=== PATIENT | male | born 1960 | race Caucasian/White ===

== ENCOUNTER 2018-10-11 11:25 | Emergency (ER) | payer OTHER ==
[~2018-10-11] VITALS: Ht 170.2 cm; Wt 79.4 kg
[~2018-10-11 11:25] MED LIST: ASP325T PO; CARV12.53 PO; GLUC100016 PO; MULTIVITAMEN PO; OMEG1CAP51 PO; RAMI10CA PO
--- OUTSIDE RECORDS SUMMARY | 2018-10-11 11:30 | XMS REPORT | Continuity of Care Document ---
Author Author [facility] Organization [facility] Address Unknown Phone Unavailable Allergies Active Description Code Type Severity Reaction Onset Reported/Identified Relationship to Patient Clinical Status Yes PENICILLIN PENICILLIN Mild RASH ON BODY 04/17/2012 Medications There is no data. 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 04/17/2012 Ot V76.51 SCREEN MAL NEOP-COLON 04/08/2016 Ot 428.0 CONGESTIVE HEART FAILURE NOS 04/08/2016 Ot V72.84 EXAM PRE- OPERATIVE NOS 04/08/2016 Ot 397.0 TRICUSPID VALVE DISEASE 04/08/2016 Ot 401.9 HYPERTENSION NOS 04/08/2016 Ot 424.0 MITRAL VALVE DISORDER 04/08/2016 Ot 428.0 CONGESTIVE HEART FAILURE NOS 04/08/2016 Ot 429.3 CARDIOMEGALY 04/08/2016 Ot 716.91 ARTHROPATHY NOS-SHLDER 04/09/2016 MORENA PIRES APRN Ot M79.661 PAIN IN RIGHT LOWER LEG 04/09/2016 MORENA PIRES APRN Ot R22.41 LOCALIZED SWELLING, MASS AND LUMP, RIGHT 04/09/2016 MORENA PIRES APRN Ot S80.11XA CONTUSION OF RIGHT LOWER LEG, INITIAL EN 04/09/2016 MORENA PIRES APRN Ot W11.XXXA FALL ON AND FROM LADDER, INITIAL ENCOUNT 04/09/2016 MORENA PIRES APRN Ot Y99.8 OTHER EXTERNAL CAUSE STATUS 04/25/2016 MORENA PIRES APRN Ot M79.661 PAIN IN RIGHT LOWER LEG 04/25/2016 MORENA PIRES APRN Ot R22.41 LOCALIZED SWELLING, MASS AND LUMP, RIGHT 04/25/2016 PIRES, MORENA L DUBBING MACHINE OPERATOR Ot S80.11XA CONTUSION OF RIGHT LOWER LEG, INITIAL EN 04/25/2016 MORENA PIRES DUBBING MACHINE OPERATOR Ot W11.XXXA FALL ON AND FROM LADDER, INITIAL ENCOUNT 04/25/2016 MORENA PIRES DUBBING MACHINE OPERATOR Ot Y99.8 OTHER EXTERNAL CAUSE STATUS 07/24/2016 OLEKSANDR ANDREA DO Ot R51 HEADACHE 07/24/2016 OLEKSANDR ANDREA DO Ot W22.8XXA STRIKING AGAINST OR STRUCK BY OTHER OBJE 07/24/2016 OLEKSANDR ANDREA DO Ot Y99.8 OTHER EXTERNAL CAUSE STATUS Procedures There is no data. Results There is no data. Encounters ACCT No. Visit Date/Time Discharge Status Pt. Type Provider Facility Loc./Unit Complaint [id number] 06/27/2016 09:00:00 06/27/2016 23:59:59 CLS Outpatient OLEKSANDR ANDREA DO [facility] RAD DECREASED ROM AND PAIN [id number] 04/08/2016 07:47:00 04/08/2016 23:59:59 CLS Outpatient MORENA PIRES DUBBING MACHINE OPERATOR [facility] RAD [id number] 04/01/2016 11:15:00 04/01/2016 23:59:59 CLS Outpatient NEY SPENCER [facility] QUICK [id number] 06/15/2014 08:11:00 06/15/2014 23:59:59 CLS Outpatient [id number] 11/20/2012 12:38:00 Document Registration [id number] 07/15/2012 09:00:00 Document Registration [id number] 04/17/2012 07:36:00 Document Registration [id number] 04/16/2012 06:59:00 Document Registration [id number] 2011 08:21:00 Document Registration
--- NOTE | 2018-10-11 12:32 | Diagnostic Imaging Report ---
INDICATION: Difficulty breathing for 2 days. Cough and wheezing EXAMINATION: PA and lateral views of the chest. FINDINGS: The heart size and vascularity are normal. Lungs are clear. There is no effusion. There is no acute bony abnormality. IMPRESSION: No acute abnormality is seen. There is no significant change from 06/12/2008. Dictated by: Dictated on workstation # [id number]
[2018-10-11] MEDS ORDERED: MAGN400T39 PO (12:46)
[2018-10-11] MEDS ORDERED: RED600CA2 PO (12:46)
[2018-10-11 13:10] LABS: BASOPHILS % (AUTO) 0 % (0-10); EOSINOPHILS # (AUTO) 0.1 10^3/uL (0.0-0.3); EOSINOPHILS % (AUTO) 2 % (0-10); HEMATOCRIT 45 % (40-54); HEMOGLOBIN 15.3 G/DL (13.3-17.7); LYMPHOCYTES # (AUTO) 1.7 X 10^3 (1.0-4.0); LYMPHOCYTES % (AUTO) 23 % (12-44); MEAN CORPUSCULAR HEMOGLOBIN 32 PG (25-34); MEAN CORPUSCULAR HGB CONC 34 G/DL (32-36); MEAN CORPUSCULAR VOLUME 94 FL (80-99); MEAN PLATELET VOLUME 10.1 FL (7.4-10.4); MONOCYTES # (AUTO) 0.8 X 10^3 (0.0-1.0); MONOCYTES % (AUTO) 11 % (0-12); NEUTROPHILS # (AUTO) 4.9 X 10^3 (1.8-7.8); NEUTROPHILS % (AUTO) 64 % (42-75); PLATELET COUNT 273 10^3/uL (130-400); RED BLOOD COUNT 4.83 10^6/uL (4.35-5.85); RED CELL DISTRIBUTION WIDTH 13.1 % (10.0-14.5); WHITE BLOOD COUNT 7.6 10^3/uL (4.3-11.0)
[2018-10-11] MEDS ORDERED: RT-ALBUTEROL/IPRATROPIUM 3 ML (DUONEB) VIAL INH ONE (13:15)
--- NOTE | 2018-10-11 13:21 | ED Respiratory ---
General Chief Complaint: Respiratory Problems Stated Complaint: SOB, POSS FLUID IN LUNGS Nursing Triage Note: PATIENT AMBULATORY TO ER WITH COMPLAINT OF SHORTNESS OF BREATH THAT HAS BEEN PRESENT SINCE FRIDAY. PATIENT STATES HE BELIEVES HE OVERWORKED HIMSELF OVER THE LAST SEVERAL DAYS. HE STATES HE GETS WORSENING SHORTNESS OF BREATH WITH SLEEPING IN BED AND WITH EXERTION. HE STATES HE ALSO GETS CHEST TIGHTNESS WITH EXERTION. 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 Source: patient, family Exam Limitations: no limitations History of Present Illness Date Seen by Provider: Oct 11, 2018 Time Seen by Provider: 12:47 Initial Comments Here with report of shortness of breath and tightness in his chest is been going on for 2 days. Started after moving several heavy items into a moving truck. Ultimately he had to move 50 items that were about 150 pounds with another catherine. It was cold outside when he did that and he could feel some tightness in his chest at that time. He had arrest multiple times during that event. Afterwards he noted that he remained somewhat short of breath especially at night and especially when laying down. Better today. Did report chest pain but states it's actually tightness. Does have history of bad heart valve that they are watching. Used to smoke but quit 6 years ago. reports that he had bruising agreement wheezing last night. Timing/Duration: changing over time, other (2-3 days) Severity: moderate Prior Episodes/Possible Cause: occasional episodes Modifying Factors: Worse With Activity, Worse With Lying Down; Improves With Rest Associated Symptoms: cough; No fever/chills, No nasal congestion, No nasal drainage; shortness of breath; No sinus infection; wheezing Allergies and Home Medications Allergies Uncoded Allergies: PENICILLIN (Allergy, Mild, RASH ON BODY, 04/17/12) Home Medications Carvedilol 12.5 Mg Tablet, 1 EACH PO BID, (Reported) Glucosamine Sulfate 2KCL 1,000 Mg Tablet, 1,000 MG PO DAILY, (Reported) Magnesium Oxide 400 Mg Tablet, 400 MG PO DAILY, (Reported) Ramipril 10 Mg Capsule, 10 MG PO DAILY, (Reported) Red Yeast Rice 600 Mg Capsule, 600 MG PO BID, (Reported) Patient Home Medication List Home Medication List Reviewed: Yes Review of Systems Review of Systems Constitutional: see HPI; No chills, No fever EENTM: no symptoms reported Respiratory: see HPI Cardiovascular: see HPI; No chest pain; other (valvular heart disease) Gastrointestinal: No nausea, No vomiting Genitourinary: no symptoms reported Musculoskeletal: no symptoms reported All Other Systems Reviewed Negative Unless Noted: Yes Past Okfklho-Ugxcat-Ophwzi Hx Past Med/Social Hx: Reviewed Nursing Past Med/Soc Hx Patient Social History Alcohol Use: Denies Use Recreational Drug Use: No Smoking Status: Former Smoker Former Smoker, Quit: Sep 23, 2012 2nd Hand Smoke Exposure: Yes Recent Foreign Travel: No Contact w/Someone Who Travel: No Recent Infectious Disease Expo: No Recent Hopitalizations: No Physical Abuse: No Sexual Abuse: No Mistreated: No Fear: No Seasonal Allergies Seasonal Allergies: No Past Medical History Surgeries: Yes (LYMPH NODE FROM BOWEL, RIGHT SOULDER, KIDNEY STONES REMOVED) Abdominal, Appendectomy, Renal Respiratory: No Cardiac: Yes (chf,cardiomyopathy, FAULTY HEART VALVE) Valvular Heart Disease Neurological: No Genitourinary: Yes Kidney Stones Gastrointestinal: No Musculoskeletal: No Endocrine: No HEENT: No Cancer: No Psychosocial: No Integumentary: No Blood Disorders: No Family Medical History Reviewed Nursing Family Hx Physical Exam Vital Signs - First Documented 10/11/18 10/11/18 11:52 13:20 Temp 98.1 Pulse 92 Resp 14 B/P (MAP) 146/89 (108) Pulse Ox 94 O2 Delivery Room Air Capillary Refill : Less Than 3 Seconds Height: 5'7.00" Weight: 175lbs. oz. 79.756979yx; BMI Method:Stated General Appearance: WD/WN, no apparent distress HEENT: PERRL/EOMI, pharynx normal Neck: full range of motion, supple Respiratory: chest non-tender, no accessory muscle use, wheezing (a few trace wheezes lower) Cardiovascular: regular rate, rhythm, systolic murmur (greatest at the left sternal border) Gastrointestinal: non tender, soft Extremities: non-tender, normal inspection Neurologic/Psychiatric: alert, oriented x 3 Skin: normal color, warm/dry Progress/Results/Core Measures Suspected Sepsis Recent Fever Within 48 Hours: No Infection Criteria Present: None New/Unexplained Altered Menta: No Sepsis Screen: No Definite Risk SIRS Temperature:98.1 Pulse: 92 Respiratory Rate: 14 Laboratory Tests 10/11/18 11:44: White Blood Count 7.6 Blood Pressure 146 /89 Mean: 108 Laboratory Tests 10/11/18 11:44: Creatinine 0.85, Platelet Count 273, Total Bilirubin 0.8 Results/Orders Lab Results Laboratory Tests Test 10/11/18 11:44 Range/Units White Blood Count 7.6 4.3-11.0 10^3/uL Red Blood Count 4.83 4.35-5.85 10^6/uL Hemoglobin 15.3 13.3-17.7 G/DL Hematocrit 45 40-54 % Mean Corpuscular Volume 94 80-99 FL Mean Corpuscular Hemoglobin 32 25-34 PG Mean Corpuscular Hemoglobin Concent 34 32-36 G/DL Red Cell Distribution Width 13.1 10.0-14.5 % Platelet Count 273 130-400 10^3/uL Mean Platelet Volume 10.1 7.4-10.4 FL Neutrophils (%) (Auto) 64 42-75 % Lymphocytes (%) (Auto) 23 12-44 % Monocytes (%) (Auto) 11 0-12 % Eosinophils (%) (Auto) 2 0-10 % Basophils (%) (Auto) 0 0-10 % Neutrophils # (Auto) 4.9 1.8-7.8 X 10^3 Lymphocytes # (Auto) 1.7 1.0-4.0 X 10^3 Monocytes # (Auto) 0.8 0.0-1.0 X 10^3 Eosinophils # (Auto) 0.1 0.0-0.3 10^3/uL Basophils # (Auto) 0.0 0.0-0.1 10^3/uL Sodium Level 138 135-145 MMOL/L Potassium Level 4.3 3.6-5.0 MMOL/L Chloride Level 109 H 98-107 MMOL/L Carbon Dioxide Level 20 L 21-32 MMOL/L Anion Gap 9 5-14 MMOL/L Blood Urea Nitrogen 23 H 7-18 MG/DL Creatinine 0.85 0.60-1.30 MG/DL Estimat Glomerular Filtration Rate > 60 BUN/Creatinine Ratio 27 Glucose Level 104 70-105 MG/DL Calcium Level 9.0 8.5-10.1 MG/DL Corrected Calcium 9.1 8.5-10.1 MG/DL Total Bilirubin 0.8 0.1-1.0 MG/DL Aspartate Amino Transf (AST/SGOT) 20 5-34 U/L Alanine Aminotransferase (ALT/SGPT) 32 0-55 U/L Alkaline Phosphatase 78 40-136 U/L Troponin I < 0.30 <0.30 NG/ML B-Type Natriuretic Peptide 116.3 H <100.0 PG/ML Total Protein 6.5 6.4-8.2 GM/DL Albumin 3.9 3.2-4.5 GM/DL My Orders Orders - ALEKSANDER SPENCER MD Chest Pa/Lat (2 View) (10/11/18 12:14) BNP (10/11/18 13:05) Cbc With Automated Diff (10/11/18 13:05) Comprehensive Metabolic Panel (10/11/18 13:05) Troponin I (10/11/18 13:05) Ekg Tracing (10/11/18 13:05) Albuterol/Ipra Inhalation Soln (Duoneb I (10/11/18 13:15) Svn Small Volume Nebulizer (10/11/18 13:06) Rx-Albuterol Inhaler (Rx-Proair) (10/11/18 13:45) Medications Given in ED Current Medications Medications Dose Ordered Sig/Juan Carlos Route Start Time Stop Time Status Last Admin Dose Admin Albuterol/ Ipratropium 3 ml ONCE ONCE INH 10/11/18 13:15 10/11/18 13:16 DC 10/11/18 13:20 3 ML Vital Signs/I&O 10/11/18 10/11/18 11:52 13:20 Temp 98.1 Pulse 92 Resp 14 B/P (MAP) 146/89 (108) Pulse Ox 94 O2 Delivery Room Air Room Air Capillary Refill : Less Than 3 Seconds Blood Pressure Mean: 108 Progress Note : Progress Note Seen and evaluated. IV, labs, EKG and chest x-ray ordered. Duo neb ordered. Monitor patient. This did markedly improve his breathing. 1346: Overall much better. Prednisone 40 mg by mouth and we will give patient an albuterol inhaler to go. He was instructed to follow-up with his primary care physician as well as his inspector machined parts. He does have a history of mitral prolapse and mitral valve problems. This may be contributing some although I do believe this is more related to lungs. Discharged home with return precautions. Patient verbalize understanding instructions and agreement with plan. ECG Initial ECG Impression Date: Oct 11, 2018 Initial ECG Impression Time: 11:33 Initial ECG Rate: 90 Initial ECG Rhythm: Normal Sinus Comment Sinus rhythm with left bundle branch block. No evidence of ST elevation SD. Similar to 12 June 2008. Interpreted by me. Diagnostic Imaging Diagonstic Imaging: Xray Plain Films/CT/US/NM/MRI: chest Comments NAME: SOBEIDA ARANA [facility] REC#: [id number] PT STATUS: REG ER : 1960 PHYSICIAN: ALEKSANDER SPENCER MD ADMIT DATE: 10/11/18/ER Signed Date of Exam: 10/11/18 CHEST PA/LAT (2 VIEW) INDICATION: Difficulty breathing for 2 days. Cough and wheezing EXAMINATION: PA and lateral views of the chest. FINDINGS: The heart size and vascularity are normal. Lungs are clear. There is no effusion. There is no acute bony abnormality. IMPRESSION: No acute abnormality is seen. There is no significant change from 06/12/2008. Dictated by: Dictated on workstation # [id number] Dict: 10/11/18 1227 Trans: 10/11/18 1243 Interpreted by: CEM VILLAVICENCIO MD Electronically signed by: CEM VILLAVICENCIO MD 10/11/18 1243 Departure Impression Primary Impression: COPD exacerbation Disposition: 01 HOME, SELF-CARE Condition: Improved Departure-Patient Inst. Decision time for Depature: 13:48 Referrals: SAMANTHA LI DO (PCP/Family) Primary Care Physician Patient Instructions: Acute Bronchitis, Adult (DC) Add. Discharge Instructions: All discharge instructions reviewed with patient and/or family. Voiced understanding. Take medications as directed. Follow-up with your doctor this week or early next week for recheck and further evaluation. You may use the inhaler 2 puffs every 6 hours as needed for wheezing or shortness of breath. Return for worse pain, fever, vomiting, weakness, breathing problems or other concerns as needed. You should follow-up with your inspector machined parts to discuss the symptoms as well. Scripts Albuterol Sulfate (VENTOLIN HFA) 1 Puff Puff 2 PUFF IH Q4H PRN for WHEEZING, #1 INHALER 0 Refills 1 PUFF = 90 MCG Prov: ALEKSANDER SPENCER MD 10/11/18 Prednisone (Prednisone) 20 Mg Tab 40 MG PO DAILY, #6 TAB 0 Refills Prov: ALEKSANDER SPENCER MD 10/11/18 Copy Copies To 1: SAMANTHA LI TIMOTHY D MD Oct 11, 2018 13:21
[2018-10-11 13:23] LABS: ALANINE AMINOTRANSFERASE 32 U/L (0-55); ALBUMIN 3.9 GM/DL (3.2-4.5); ALKALINE PHOSPHATASE 78 U/L (40-136); BILIRUBIN,TOTAL 0.8 MG/DL (0.1-1.0); BUN/CREATININE RATIO 27; CARBON DIOXIDE 20 MMOL/L (21-32); CHLORIDE 109 MMOL/L (98-107); CREATININE SERUM 0.85 MG/DL (0.60-1.30); GFR ESTIMATED > 60; GLUCOSE 104 MG/DL (70-105); POTASSIUM 4.3 MMOL/L (3.6-5.0); SODIUM 138 MMOL/L (135-145); TOTAL PROTEIN 6.5 GM/DL (6.4-8.2)
[2018-10-11] MEDS ORDERED: predniSONE 20 MG TAB PO ONE (13:45)
[2018-10-11] MEDS ORDERED: RX-ALBUTEROL INHALER (PROAIR) 8 GM IH PRN (13:45)
[2018-10-11] MEDS ORDERED: RT-ALBUINH IH (13:50)
[2018-10-11] MEDS ORDERED: PRD20T PO (13:50)
[2018-10-11 14:13] VITALS: BP 126/86
== END 2018-10-11 14:16 | disposition home or self-care (01) ==
LOC: EDUNIT# 11:25 → ER 11:26
DX: J44.1 Chronic obstructive pulmonary disease with (acute) exacerbation (principal); I50.9 Heart failure, unspecified; I42.9 Cardiomyopathy, unspecified; Z87.891 Personal history of nicotine dependence; Z88.0 Allergy status to penicillin; Z94.9 Transplanted organ and tissue status, unspecified; Z87.442 Personal history of urinary calculi
CPT/HCPCS: 36415; 71046; 80053; 83880; 84484; 85025; 94640

== ENCOUNTER 2019-01-18 07:21 | Outpatient (RCR) | payer OTHER ==
[~2019-01-18 07:21] MED LIST changes: +MAGN400T39 PO; +PRD20T PO; +RED600CA2 PO; +RT-ALBUINH IH
== END 2019-04-18 | disposition home or self-care (01) ==
LOC: CARD 07:21
PROVIDERS: ATTEND Internal Medicine
DX: I48.0 Paroxysmal atrial fibrillation (principal)
CPT/HCPCS: 93225; 93226

== ENCOUNTER 2019-01-22 13:51 | Outpatient (RCR) | payer OTHER | END 2019-04-22 | disposition home or self-care (01) | LOC: CARD 13:51 | PROVIDERS: ATTEND Internal Medicine | DX: I48.0 Paroxysmal atrial fibrillation (principal); R55 Syncope and collapse ==

== ENCOUNTER 2021-12-06 08:44 | Outpatient (CLI) | payer BC ==
[~2021-12-06] VITALS: Ht 170.2 cm; Wt 78.9 kg
[2021-12-06] MEDS ORDERED: ONDANSETRON 4 MG/2 ML (SDV) Z0FRAN IV PRN (09:00)
[2021-12-06] MEDS ORDERED: EPINEPHrine INJECTION 1 MG/ML AMP IM PRN (09:00)
[2021-12-06] MEDS ORDERED: CASIRIVIMAB/IMDEVIMAB 1,200 MG in NS (IVPB) 250 ML IV ONE (09:00)
[2021-12-06] MEDS ORDERED: ACETAMINOPHEN 500 MG TAB (TYLENOL) PO PRN (09:00)
[2021-12-06] MEDS ORDERED: diphenhydrAMINE 50 MG/ML INJ (BENADRYL) IV PRN (09:00)
[2021-12-06 09:04] VITALS: BP 122/73
[2021-12-06 10:40] VITALS: BP 108/70
== END 2021-12-06 10:43 | disposition home or self-care (01) ==
LOC: INFUSION 08:44
PROVIDERS: ATTEND Nurse Practitioner Family
DX: U07.1 COVID-19 (principal)